=== PATIENT | female | born 1965 | race Caucasian/White ===

== ENCOUNTER 2018-03-27 11:06 | Inpatient (IN) | payer MEDICAID ==
[~2018-03-27] VITALS: Ht 157.5 cm; Wt 85.7 kg
[2018-03-27 12:49] LABS: BASOPHILS # (AUTO) 0.1 (0.0-0.1); BASOPHILS % 0.8 % (0.0-1.0); EOSINOPHILS # (AUTO) 0.2 (0.0-0.4); EOSINOPHILS % 2.7 % (0.0-6.0); HEMATOCRIT 42.8 % (34.2-44.1); HEMOGLOBIN 13.8 g/dL (12.0-16.0); LYMPHOCYTES # (AUTO) 2.2 (1.0-3.2); LYMPHOCYTES % 25.1 % (18.0-39.1); MEAN CORPUSCULAR HGB CONC 32.2 g/dL (31-35); MONOCYTES # (AUTO) 0.5 (0.2-0.8); MONOCYTES % 5.6 % (4.4-11.3); NEUTROPHILS # (AUTO) 5.8 (2.1-6.9); NEUTROPHILS % 65.6 % (38.7-80.0); PLATELET COUNT 259 x10e3/uL (140-360); RED CELL DISTRIBUTION WIDTH 13.7 % (11.7-14.4)
[2018-03-27 13:11] LABS: ALANINE AMINOTRANSFERASE 92 IU/L (0-55); ALBUMIN 3.4 g/dL (3.5-5.0); ALKALINE PHOSPHATASE 184 IU/L (40-150); ANION GAP 14.9 mmol/L (8-16); BLOOD UREA NITROGEN 10 mg/dL (7-26); BUN/CREATININE RATIO 15 (6-25); CALCIUM 9.4 mg/dL (8.4-10.2); CARBON DIOXIDE 24 mmol/L (22-29); CHLORIDE 103 mmol/L (98-107); CREATININE, SERUM 0.68 mg/dL (0.57-1.11); EST GLOMERULAR FILTRATION RATE > 60 ML/MIN (60-); GLUCOSE 187 mg/dL (74-118); POTASSIUM 3.9 mmol/L (3.5-5.1); SODIUM 138 mmol/L (136-145)
--- NOTE | 2018-03-27 13:51 | Diagnostic Imaging Report ---
Radiographs of the right foot - 3 views HISTORY: Pain COMPARISON: None available. FINDINGS: Bones: No acute displaced fracture. Osseous alignment is within normal limits. Joints: Scattered degenerative change. Soft tissues: Soft tissue swelling about the fifth toe with suspected osseous erosion at the distal portion of the distal phalanx IMPRESSION: Findings worrisome for osteomyelitis involving the distal portion of the right fifth toe. Signed by: Dr. Jorge Choudhary M.D. on 03/27/2018 1:48 PM
[2018-03-27 14:39] LABS: INR 0.95; PARTIAL THROMBOPLASTIN TIME 28.7 seconds (23.8-35.5); PROTHROMBIN TIME 13.6 seconds (11.9-14.5)
[2018-03-27] MEDS ORDERED: ONDANSETRON HCL INJ 2MG/ML 2ML 2 MG/ML VIAL ONE (15:52)
[2018-03-27] MEDS ORDERED: CEFEPIME HCL 1 GM VIAL IV SCH (16:45)
[2018-03-27] MEDS ORDERED: VANCOMYCIN 1GM/NS 250 ML 250 ML IV SCH ×2 (16:45→18:00)
[2018-03-27] MEDS ORDERED: HYDROCODONE/APAP 10MG-325MG TAB PO ONE (17:30)
--- OUTSIDE RECORDS SUMMARY | 2018-03-27 17:35 | XMS REPORT ---
Author Author [facility] Address Unknown Phone Unavailable Care Team Providers Care Supervisor [employer] Name Role Phone Margarito COLLINS Unavailable Unavailable Problems This patient has no known problems. Allergies, Adverse Reactions, Alerts This patient has no known allergies or adverse reactions. Medications This patient has no known medications. Results Test Description Test Time Test Comments Text Results Atomic Results Result Comments FOOT RIGHT COMPLETE 2018-03-27 13:46:00 [place] [address] Patient Name: KELLY CATHERINE MR #: [id number] : 1965 Age/Sex: 52/F Req #: [id number] Adm Physician: Ordered by: GARRETT MANDEL REGISTRATION CLERK Report #: [id number] Location: ER Room/Bed: Procedure: [id number] DX/FOOT RIGHT COMPLETE Exam Date: 03/27/18 Exam Time: 1300 REPORT STATUS: Signed Radiographs of the right foot - 3 views HISTORY: Pain COMPARISON: None available. FINDINGS: Bones: No acute displaced fracture. Osseous alignment is within normal limits. Joints: Scattered degenerative change. Soft tissues: Soft tissue swelling about the fifth toe with suspected osseous erosion at the distal portion of the distal phalanx IMPRESSION: Findings worrisome for osteomyelitis involving the distal portion of the right fifth toe. Signed by: Dr. Lisandra Choudhary M.D. on 03/27/2018 1:48 PM Dictated By: LISANDRA CHOUDHARY MD, MD [id number] Transcribed By: LALA on 03/27/18 1348 COPY TO: GARRETT MANDEL NP
[2018-03-27 19:30] VITALS: BP 125/72
--- NOTE | 2018-03-27 19:30 | NUR ---
Admitted Pt to room 285 via stretcher. Pt A&Ox4. Anxious. c/o chronic back pain 8/10 numeric scale. Skin warm and dry. Right foot nonpitting +1 edema, 5th toe blackened ulcer. Hair thin and brittle. Pt states she smokes 1/2-1 pack cigarettes daily. Teeth discolored. Oral mucosa dark. 20g IV right AC, flushed 10ml NS. Last BM today, brown soft, formed. Abdomen soft, round nontender. +2 bilateral hands blueprinter. +4 pedal pulses present. Oriented to room. Call gimenez within reach. Bed low and locked. Will continue to monitor.
[2018-03-27 19:58] LABS: CHOL/HDL RATIO 3.5 (3.0-3.6)
[2018-03-27 20:00] VITALS: BP 125/72
[2018-03-27] MEDS ORDERED: ACETAMINOPHEN/CODEINE 300MG - 30MG TAB PO PRN (20:00)
[2018-03-27] MEDS ORDERED: LYRICA75 MG (20:08)
[2018-03-27] MEDS ORDERED: PLAVIX75 MG PO (20:08)
[2018-03-27] MEDS ORDERED: LIPITOR20 MG (20:08)
[2018-03-27] MEDS ORDERED: SOMA350 MG PO (20:08)
[2018-03-27] MEDS ORDERED: METFORMIN HCL500 MG PO (20:08)
[2018-03-27] MEDS ORDERED: DEXTROSE 50% SYRINGE 50 ML IV PRN (20:30)
[2018-03-27] MEDS ORDERED: SODIUM CHLORIDE 0.9% 250ML 250 ML ONE (20:56)
[2018-03-27] MEDS: INSULIN REGULAR, HUMAN 100 UNIT/1 ML 3ML VIAL SQ SCH (21:00)
[2018-03-27] MEDS: CEFEPIME 1GM/NS 0.9% 50 ML 50 ML IV SCH (21:00)
[2018-03-27] MEDS: HYDROCODONE/APAP 5MG-325MG TAB PO PRN (21:50)
--- NOTE | 2018-03-27 22:43 | NUR ---
History and Physical cc: right foot pain/color change HPI: 52yoF, PCP none, developed right foot pain/color changes for 1 week; No f/c/s. Was treated with oral doxycycline for 1 week but no improvement; Here for mgmt. PMH: DM2, MA 2015 s/p stent, Current smoker, cervical spinal stenosis s/p sx, lumbar stenosis Pshx: cervical spine Allergies; see emr FH/SH; ; no etoh; 1/2ppd cigs; Meds; see MAR ROS: no f/c/s/N/V/D/GRIFFITH/vision changes/cp/sob V/S rev'd PE; tired appearing anicteric ns1s2 mod bs soft nt nd RIGHT FOOT 5TH DIGIT WITH EARLY GANGRENOUS CHANGES; skin dry flat affect a&ox3; anxious labs/meds; rev'd A/P: 52yoF Right foot 5th toe Osteomyelitis Obesity BMI 32 Transaminitis DM2 DFU Current smoker PLAN 1.IV abx 2.f/u cx 3.Sed rate 4.will need vascular workup at some point 5.plan for IV abx for 2 days, then oral antibiotics, 6.Defer surgery until course of antibiotics; allow further demarcation of tissue is revealed. WIll need ASA/statin. 7.Nicotine patch 8.lovenox/pepcid. Lazarus Conner MD, PhD.
[2018-03-28] VITALS: BP 114/54
[2018-03-28] MEDS: ASPIRIN 325 MG TAB PO SCH ×2 (00:32→08:03)
[2018-03-28] MEDS: HYDROCODONE/APAP 5MG-325MG TAB PO PRN ×2 (01:55→08:01)
[2018-03-28 04:00] VITALS: BP 99/53
[2018-03-28] MEDS ORDERED: FAMOTIDINE 20 MG TAB PO SCH (07:30)
[2018-03-28 07:36] VITALS: BP 98/52
[2018-03-28] MEDS ORDERED: GLIPIZIDE 5 MG TAB ER PO SCH (08:00)
[2018-03-28] MEDS: CEFEPIME 1GM/NS 0.9% 50 ML 50 ML IV SCH (08:01)
[2018-03-28] MEDS: INSULIN REGULAR, HUMAN 100 UNIT/1 ML 3ML VIAL SQ SCH (08:03)
[2018-03-28] MEDS ORDERED: NORCO 5-325 TA1 EACH PO (08:04)
[2018-03-28] MEDS ORDERED: ULTRAM50 MG PO (08:06)
[2018-03-28] MEDS ORDERED: MINOCYCLINE HCL50 MG PO (08:07)
[2018-03-28] MEDS ORDERED: CIPRO500 MG PO (08:07)
[2018-03-28] MEDS ORDERED: GLIPIZIDE5 MG PO (08:08)
[2018-03-28] MEDS ORDERED: GABAPENTIN100 MG PO (08:08)
[2018-03-28] MEDS ORDERED: METFORMIN HCL500 MG PO (08:09)
[2018-03-28] MEDS ORDERED: NICOTINE PATCH1 EAC5 TD (08:10)
--- NOTE | 2018-03-28 08:21 | NUR ---
Discharge summary Principal Dx: A/P: 52yoF Right foot 5th toe Osteomyelitis Obesity BMI 32 Transaminitis DM2 DFU Current smoker Secondary dx: Obesity cc and HPi; refer to H&P Hospital course: A/P: 52yoF Right foot 5th toe Osteomyelitis Obesity BMI 32 Transaminitis DM2 DFU Current smoker PLAN 1.IV abx 2.f/u cx 3.Sed rate 4.will need vascular workup at some point 5.plan for IV abx for 2 days, then oral antibiotics, 6.Defer surgery until course of antibiotics; allow further demarcation of tissue is revealed. WIll need ASA/statin. 7.Nicotine patch 8.lovenox/pepcid. d/c home condition ;stable d/c meds; cipro, minocycline and norco f/u 1 week Lazarus Conner MD, PhD. PLAN 1.IV abx 2.f/u cx 3.Sed rate 4.will need vascular workup at some point 5.plan for IV abx for 2 days, then oral antibiotics, 6.Defer surgery until course of antibiotics; allow further demarcation of tissue is revealed. WIll need ASA/statin. 7.Nicotine patch 8.lovenox/pepcid. Lazarus Conner MD, PhD.
--- NOTE | 2018-03-28 08:22 | NUR ---
ADDENDUM TO DISCHARGE SUMMARY Uncontrolled DM- Hba1c/LDL 12. Lazarus Conner MD, PhD.
[2018-03-28] MEDS ORDERED: NICOTINE 14 MG/EA PATCH TOP SCH (09:00)
[2018-03-28 09:25] VITALS: BP 98/52
--- NOTE | 2018-03-28 09:25 | NUR ---
PT RECEIVED RESTING IN BED. ALERT AND ORIENTED X4. EMOTIONAL SUPPORT GIVEN. CALL [place] WITHIN REACH. PT GIVEN DISCHARGE INSTRUCTIONS REGARDING MEDS, DIET, ACTIVITIES, AND FOLLOW UP APPOINTMENT. PT VERBALIZED UNDERSTANDING OF TEACHING. LEFT FLOOR IN WHEELCHAIR TO FATHER'S CAR
[2018-03-28] MEDS ORDERED: ENOXAPARIN SOD INJ 40 MG/0.4 ML SYR SC SCH (17:00)
[2018-03-28] MEDS ORDERED: PRAVASTATIN 20 MG TAB PO SCH (21:00)
== END 2018-03-28 09:31 | disposition home or self-care (01) | DRG 638 ==
LOC: ER 11:06 → ERHOLD 16:39 → MED/SURG3 18:41
PROVIDERS: ADMIT Internal Medicine; ATTEND Internal Medicine
DX: E11.69 Type 2 diabetes mellitus with other specified complication (principal); L03.115 Cellulitis of right lower limb; M86.171 Other acute osteomyelitis, right ankle and foot; E11.52 Type 2 diabetes mellitus with diabetic peripheral angiopathy with gangrene; I96 Gangrene, not elsewhere classified; E66.9 Obesity, unspecified; Z68.32 Body mass index [BMI] 32.0-32.9, adult; F17.210 Nicotine dependence, cigarettes, uncomplicated; E11.65 Type 2 diabetes mellitus with hyperglycemia; Z79.84 Long term (current) use of oral hypoglycemic drugs
CPT/HCPCS: 36415; 80053; 80061; 82948; 83036; 83605; 83735; 85025; 85610; 85651; 85730; 87040; 93971; 99283; J0692; J2405; J3370; J7050